=== PATIENT | female | born 1970 | race Caucasian/White ===

== ENCOUNTER → 2021-12-17 | Outpatient (CLI) | payer BC ==
[2021-12-17 13:52] VITALS: BP 120/77; PULSE 79; TEMP 98.1; BMI 36.8
--- NOTE | 2021-12-17 14:32 | P.HPBAR ---
Bariatric H&P - History & Physicial H&P Date: 12/17/21 History & Physicial: Visit/CC: new patient Patient initial contact: Initial weight: Initial weight in pounds: Height: 5 ft 5 in Initial BMI: Last weight: Current weight: 100.244 kg Current weight in pounds: 221.00 Current BMI: 36.8 [place] body weight (based on NIH guidelines): 56.699 kg Excess body weight loss: The patient is a 51 year-old F who presents for Bariatric Assessment. Family history of troubles with weight including brother and grandmother and cousins. Highest weight is present. She has rheumatoid arthritis and and osteoarthritis. She reports hips and back. She reports trouble with sleeping. She has plantar fasciitis. No stomach or esophageal cancer except grandmother. She had her colonoscopy in 2018 to 2019. She reports troubles with blood in stools. She has GERD. She reports blood. No gallbladder. She takes omeprazole. She has csections and breast reduction. No DVTs. No family history of blood clots. She reports pain along the right side prior to her gallbladder removal. Troubles with sleep Recommend colonoscopy She has PONV Increased pannus She has breast reduction. Past Medical History Past Medical History: Fibromyalgia, GERD/Reflux, Rheumatoid Arthritis (RA) Additional Past Medical History / Comment(s): STATES "RETAINS WATER" History of Any Multi-Drug Resistant Organisms: None Reported Past Surgical History: Breast Surgery, Section, Cholecystectomy Additional Past Surgical History / Comment(s): BREAST REDUCTION Past Anesthesia/Blood Transfusion Reactions: Motion Sickness, Postoperative Nausea & Vomiting (PONV) Past Psychological History: Anxiety Smoking Status: Current some day smoker Past Alcohol Use History: Occasional Past Drug Use History: None Reported - Past Family History Father Family Medical History: Cancer Additional Family Medical History / Comment(s): PROSTATE Surgical - Exam Vital Signs Temp Pulse BP 98.1 F 79 120/77 12/17/21 13:44 12/17/21 13:44 12/17/21 13:44 Bariatric Checklist Checklist: Plan: Checklist: EGD: 1. Hiatal hernia: 2. H. Pylori: HgbA1c: Vitamin D: Smoking: Former smoker Primary care physician referral: Dr. Mercado Psychiatry clearance: Cardiology clearance: Sleep study: Diet journal: VTE risk score: VTE risk level: Rehab needs at discharge:
[2021-12-17 17:30] LABS: INR 0.9 (<1.2); Partial Thromboplastin Time 22.4 sec (22.0-30.0); Prothrombin Time 10.1 sec (9.0-12.0)
[2021-12-17 22:42] LABS: HCT 42.8 % (37.2-46.3); HGB 13.9 g/dL (12.0-15.0); MCH 28.8 pg (27.0-32.0); MCHC 32.5 g/dL (32.0-37.0); MCV 88.8 fL (80.0-97.0); Mean Platelet Volume 10.4 fL (9.5-12.2); NRBC Per 100 WBC 0 /100 WBCS (0.0-0.0); Platelet Count 247 X 10*3/uL (140-440); RBC 4.82 X 10*6/uL (4.10-5.20); RDW 12.8 % (11.5-14.5); WBC 7.32 X 10*3/uL (4.50-10.00)
[2021-12-18 04:52] LABS: Chol/HDL Ratio 3.38 Ratio; LDL Cholesterol,Calculated 70.4 mg/dL (0.0-131.0); Prealbumin 34.4 mg/dL (18.0-42.0)
[2021-12-18 04:54] LABS: % Iron Saturation 15.94 (12.00-45.00); Total Iron Binding Capacity 332 ug/dL (228-460)
[2021-12-18 04:55] LABS: Ferritin 25.9 ng/mL (10.0-291.0); Iron 53 ug/dL (50-170); Magnesium 1.7 mg/dL (1.5-2.4); Phosphorus 3.5 mg/dL (2.4-5.1)
[2021-12-18 05:04] LABS: ALT 18 U/L (8-44); AST 31 U/L (13-35); African American GFR (CKD) 76.1 (60.0-200.0); Albumin 3.3 g/dL (3.8-4.9); Albumin/Globulin Ratio 1.32 (1.60-3.17); Alkaline Phosphatase 92 U/L (41-126); Blood Urea Nitrogen 12.6 mg/dL (9.0-27.0); Carbon Dioxide 21.5 mmol/L (20.0-27.5); Chloride 107 mmol/L (96-109); Globulin 2.5 g/dL (1.6-3.3); Glucose 87 mg/dL (70-110); Non-African American GFR(CKD) 65.6 (60.0-200.0); Potassium 4.6 mmol/L (3.5-5.5); Sodium 143 mmol/L (135-145); Total Bilirubin <0.15 mg/dL (0.30-1.20); Total Protein 5.8 g/dL (6.2-8.2)
[2021-12-18 12:09] LABS: Zinc, Serum 82 ug/dL (60-130)
[2021-12-19 09:16] LABS: Vit B1(Thiamine) 94 ug/L (38-122)
[2021-12-19 09:56] LABS: Vitamin A 72 ug/dL (38-106)
[2021-12-20 10:22] LABS: Anabasine Urine <2.0 ng/mL (<2.0)
[2021-12-22 17:41] LABS: Selenium 146 mcg/L (63-160)
== END | disposition home or self-care (01) ==
LOC: BARWHC3 13:30
PROVIDERS: ATTEND Surgery Plastic and Reconstructive Surgery
DX: E66.01 Morbid (severe) obesity due to excess calories (principal); E89.1 Postprocedural hypoinsulinemia; D50.8 Other iron deficiency anemias; K91.2 Postsurgical malabsorption, not elsewhere classified; E44.0 Moderate protein-calorie malnutrition; E44.1 Mild protein-calorie malnutrition; E45 Retarded development following protein-calorie malnutrition; E55.9 Vitamin D deficiency, unspecified; K74.1 Hepatic sclerosis; N19 Unspecified kidney failure; T56.894A Toxic effect of other metals, undetermined, initial encounter; K50.90 Crohn's disease, unspecified, without complications; Z71.51 Drug abuse counseling and surveillance of drug abuser
CPT/HCPCS: 80053; 80061; 80307; 80323; 82306; 82525; 82607; 82728; 82746; 83036; 83540; 83550; 83735; 83970; 84100; 84134; 84255; 84425; 84443; 84590; 84630; 85027; 85610; 85730; 93005; 99212

== ENCOUNTER 2022-01-19 07:28 | Day surgery (SDC) | payer BC ==
[2022-01-15 11:03] VITALS: BMI 35.8
--- NOTE | 2022-01-19 07:32 | P.GSHP ---
History of Present Illness H&P Date: 01/19/22 CHIEF COMPLAINT: GERD and colon screen HISTORY OF PRESENT ILLNESS: The patient is a 51-year-old female who presents with gastroesophageal reflux disease and need for colon screen. Upper and lower endoscopy were offered for further evaluation and management. PAST MEDICAL HISTORY: Please see list. PAST SURGICAL HISTORY: Please see list. MEDICATIONS: Please see list. ALLERGIES: Please see list. SOCIAL HISTORY: No illicit drug use FAMILY HISTORY: No reports of Crohn disease or ulcerative colitis. REVIEW OF ORGAN SYSTEMS: CONSTITUTIONAL: No reports of fevers or chills. GI: Denies any blood in stools or constipation. PHYSICAL EXAM: VITAL SIGNS: Stable GENERAL: Well-developed pleasant in no acute distress. HEENT: No scleral icterus. Extraocular movements grossly intact. Moist buccal mucosa. NECK: Supple without lymphadenopathy. CHEST: Unlabored respirations. Equal bilateral excursions. CARDIOVASCULAR: Regular rate and rhythm. Distal 2+ pulses. ABDOMEN: Soft, nondistended. MUSCULOSKELETAL: No clubbing, cyanosis, or edema. ASSESSMENT: 1. Gastroesophageal reflux disease 2. Colon screen. PLAN: 1. Recommend proceeding with an upper and lower endoscopy Past Medical History Past Medical History: Fibromyalgia, GERD/Reflux, Hyperlipidemia, Rheumatoid Arthritis (RA) Additional Past Medical History / Comment(s): STATES "RETAINS WATER." History of Any Multi-Drug Resistant Organisms: None Reported Past Surgical History: Breast Surgery, Section, Cholecystectomy, Uterine Ablation Additional Past Surgical History / Comment(s): BREAST REDUCTION. Past Anesthesia/Blood Transfusion Reactions: Motion Sickness, Postoperative Nausea & Vomiting (PONV) Past Psychological History: Anxiety Smoking Status: Current some day smoker Past Alcohol Use History: Occasional Additional Past Alcohol Use History / Comment(s): Smokes less than a pack week, X 30 yrs. Past Drug Use History: None Reported - Past Family History Father Family Medical History: Cancer Additional Family Medical History / Comment(s): PROSTATE CANCER. Mother Family Medical History: Cancer Additional Family Medical History / Comment(s): Lung cancer. Medications and Allergies Home Medications Medication Instructions Recorded Confirmed Type ALPRAZolam [Xanax] 0.25 mg PO DAILY PRN 03/26/16 01/15/22 History Omeprazole/Sodium Bicarbonate 1 each PO DAILY 03/26/16 01/15/22 History [Omeprazole-Bicarb 20-1,100 Cap] hydroCHLOROthiazide 25 mg PO DAILY 03/26/16 01/15/22 History Rosuvastatin [Crestor] 10 mg PO DAILY 12/17/21 01/15/22 History Allergies Allergy/AdvReac Type Severity Reaction Status Date / Time latex Allergy Itching Verified 01/15/22 11:04
[2022-01-19] MEDS ORDERED: LACTATED RINGERS 1,000 ML IV SCH (07:44)
[2022-01-19 07:53] VITALS: TEMP 96.9
[2022-01-19] MEDS ORDERED: PROPOFOL 10 MG/ML 20 ML VIAL IV ONE (08:43)
[2022-01-19] MEDS ORDERED: LIDOCAINE 2% INJ 20 MG/ML (2 ML VIAL) ONE (08:43)
[2022-01-19 09:54] VITALS: BP 130/71; PULSE 66; RESP 15
--- NOTE | 2022-01-19 10:14 | P.PCN ---
Date of Procedure: 01/19/22 Description of Procedure: PREOPERATIVE DIAGNOSIS: Gastroesophageal reflux disease. Morbid obesity. POSTOPERATIVE DIAGNOSIS: Gastroesophageal reflux disease. Morbid obesity. Gastritis. Duodenitis Gastric polyp Diaphragmatic hiatal hernia OPERATION: Esophagogastroduodenoscopy with biopsies along antrum and duodenum SURGEON: Federica Loera MD ANESTHESIA: MAC. INDICATIONS: The patient is a 51-year-old female who presents with reflux disease. Benefits and risks of the procedure were described. Informed consent was obtained. DESCRIPTION: The patient was brought into the endoscopy suite and laid in the left lateral decubitus position. An Olympus gastroscope was passed along the posterior oroph arynx down to the distal esophagus where the squamocolumnar junction was encountered at 40 cm from the incisors. The stomach was entered and no bile reflux was found. Additional findings are listed below. Biopsies with cold forceps were obtained of the antrum. The first through third portion of the duodenum was examined. Retroflexion of the scope confirmed Hill grade 3 lower esophageal valve. The squamocolumnar junction demonstrated LA grade B erosive esophagitis. The stomach was desufflated. The patient tolerated the procedure well. FINDINGS: Squamocolumnar junction 40 cm from the incisors. Diaphragmatic hiatus at 40 cm. Hiatal hernia, 4 cm Hill grade 4 lower esophageal valve. LA grade B erosive esophagitis. No active duodenitis. Chronic gastritis with recent bleed RECOMMENDATIONS: Upper endoscopy as needed.
--- NOTE | 2022-01-19 10:15 | P.PCN ---
Date of Procedure: 01/19/22 Description of Procedure: PREOPERATIVE DIAGNOSIS: Colonoscopy screening POSTOPERATIVE DIAGNOSIS: Personal history of colon polyps Family history malignant colon polyps Colonoscopy screening Tubular adenoma hepatic flexure Tubular adenoma transverse colon Sigmoid diverticulosis Internal hemorrhoids, grade 4 OPERATION: Colonoscopy to the ileocecal valve and appendiceal orifice, cecum Colonoscopy with cold forceps biopsy SURGEON: Federica Loera MD. ANESTHESIA: MAC. INDICATIONS: The patient is an 51-year-old female who presents family history of malignant colon polyps and personal history of colon polyps. Last colonoscopy 5 years. Benefits and risks were described and informed consent was obtained. DESCRIPTION OF PROCEDURE: The patient had undergone Sutab prep. The patient had been brought into the operating room and laid in the left lateral decubitus position. After adequate intravenous sedation, the rectum was examined with 2% lidocaine jelly. External hemorrhoids were encountered. The rectal tone was within normal limits. No lesions were palpated in the rectal vault. An Olympus colonoscope was advanced until the cecum, ileocecal valve and appendiceal orifice were clearly viewed. The prep was fair. Sigmoid diverticulosis was encountered. Colonic polyps were found and removed. No evidence of focal colitis was found. Retroflexion of the scope demonstrated grade 2 internal hemorrhoids without active bleeding or inflammation. The colon was desufflated. The patient had tolerated the procedure well. Withdrawal time was over 6 minutes. FINDINGS: Aronchick preparation quality scale 1 (1-5) Internal hemorrhoids, grade 3 with recent inflammation and bleeding External hemorrhoids, grade 4. No arteriovenous malformations. Sigmoid diverticulosis Removal of 2 polyps: - Snare polypectomy 20 cm from the anal verge, 5 mm tubulovillous adenoma polyp. - Snare polypectomy 39 cm from the anal verge, 8 mm flat villous adenoma polyp. - Snare polypectomy 50 cm from the anal verge, 12 mm flat villous adenoma polyp. - Cold forceps biopsy at 30 cm from the anal verge, 4 mm polyp. - Cold forceps biopsy at 40 cm from the anal verge, 5 mm polyp. - Cold forceps biopsy at 45 cm from the anal verge, 4 mm polyp. - Cold forceps biopsy at 55 cm from the anal verge, 3 mm polyp. - Cold forceps biopsy at 60 cm from the anal verge, 4 mm polyp. - Cold forceps biopsy at 65 cm from the anal verge, 3 mm polyp. - Cold forceps biopsy at 75 cm from the anal verge, 4 mm polyp. - Cold forceps biopsy at mid transverse colon, 5 mm polyp. - Cold forceps biopsy at proximal transverse colon, 4 mm polyp. No focal colitis. RECOMMENDATIONS: Given severity of tubular adenomas, recommend repeat colonoscopy 1 year. Plan - Discharge Summary Discharge Rx Participant: No New Discharge Prescriptions: Continue ALPRAZolam [Xanax] 0.25 mg PO DAILY PRN PRN Reason: Anxiety Omeprazole/Sodium Bicarbonate [Omeprazole-Bicarb 20-1,100 Cap] 1 each PO DAILY hydroCHLOROthiazide 25 mg PO DAILY Rosuvastatin [Crestor] 10 mg PO DAILY Discharge Medication List ALPRAZolam [Xanax] 0.25 mg PO DAILY PRN 03/26/16 [History] Omeprazole/Sodium Bicarbonate [Omeprazole-Bicarb 20-1,100 Cap] 1 each PO DAILY 03/26/16 [History] hydroCHLOROthiazide 25 mg PO DAILY 03/26/16 [History] Rosuvastatin [Crestor] 10 mg PO DAILY 12/17/21 [History] [facility]Ref[place] [facility] [place] [place] [facility] [place] Patient Instructions/Handouts: *Surgery [facility] - (Anesthesia) Endoscopy Discharge Instructions, Hiatal Hernia (ED), Gastritis (GEN), Colorectal Polyps (GEN), Duodenitis (DC) Activity/Diet/Wound Care/Special Instructions: Repeat colonoscopy in 3 years, 2024 Discharge Disposition: HOME SELF-CARE
== END 2022-01-19 10:56 | disposition home or self-care (01) ==
LOC: ORWHC2ENDO 07:28
PROVIDERS: ATTEND Surgery Plastic and Reconstructive Surgery
DX: Z12.11 Encounter for screening for malignant neoplasm of colon (principal); K63.5 Polyp of colon; K57.30 Diverticulosis of large intestine without perforation or abscess without bleeding; K64.3 Fourth degree hemorrhoids; K29.50 Unspecified chronic gastritis without bleeding; K29.80 Duodenitis without bleeding; K31.7 Polyp of stomach and duodenum; K44.9 Diaphragmatic hernia without obstruction or gangrene; K21.9 Gastro-esophageal reflux disease without esophagitis; E66.01 Morbid (severe) obesity due to excess calories; Z68.35 Body mass index [BMI] 35.0-35.9, adult; Z86.010 Personal history of colon polyps; Z83.71 Family history of colonic polyps; I10 Essential (primary) hypertension; E78.5 Hyperlipidemia, unspecified; M79.7 Fibromyalgia; M06.9 Rheumatoid arthritis, unspecified; F17.200 Nicotine dependence, unspecified, uncomplicated; Z91.040 Latex allergy status; Z79.899 Other long term (current) drug therapy; Z90.49 Acquired absence of other specified parts of digestive tract; Z80.42 Family history of malignant neoplasm of prostate; Z80.1 Family history of malignant neoplasm of trachea, bronchus and lung
CPT/HCPCS: 81025; 88305; 45380; 43239; J2704; J2001

== ENCOUNTER → 2022-02-18 | Outpatient (CLI) | payer BC ==
[2022-02-18 14:55] VITALS: BP 114/78; PULSE 82; TEMP 98; BMI 36.9
--- NOTE | 2022-02-18 15:08 | P.BASOAP ---
Subjective Progress Note Date: 02/18/22 She has a new EKG with Dr. Mercado. She has nicotine use. She has not had an ECHO or stress test before. Reviewed labs. Nicotine needs follow up. Went over EGD and colonoscopy could have a 5 year follow-up. She had occasional blood in stools improved prior to her procedures. Objective - Vital Signs Vital signs: Vital Signs Temp 98 F 02/18/22 14:54 Pulse 82 02/18/22 14:54 Resp BP 114/78 02/18/22 14:54 Pulse Ox FiO2 Intake & Output 02/17/22 02/18/22 02/18/22 18:59 06:59 18:59 Weight 100.698 kg Assessment/Plan Plan: Date: 02/18/22 Initial Weight: Initial BMI: Current Weight: 100.698 kg Current BMI: 36.9 Type of Surgery: Total Volume in Band: Previous Volume: Volume Removed: Volume Added: Band Size:
== END | disposition home or self-care (01) ==
LOC: BARWHC3 14:15
PROVIDERS: ATTEND Surgery Plastic and Reconstructive Surgery
DX: Z48.815 Encounter for surgical aftercare following surgery on the digestive system (principal)
CPT/HCPCS: 99211

== ENCOUNTER → 2022-03-02 | Outpatient (CLI) | payer BC ==
[2022-03-02 11:10] VITALS: BMI 37.5
== END | disposition home or self-care (01) ==
LOC: BARWHC3 08:47
PROVIDERS: ATTEND Surgery Plastic and Reconstructive Surgery
DX: E66.01 Morbid (severe) obesity due to excess calories (principal); Z71.3 Dietary counseling and surveillance
CPT/HCPCS: 97804

== ENCOUNTER → 2022-04-22 | Outpatient (CLI) | payer BC ==
--- NOTE | 2022-04-22 17:27 | P.BASOAP ---
Subjective Progress Note Date: 04/22/22 Consent for sleeve. FDD plan and PPP plan reviewed. Assessment/Plan Plan: Date: Initial Weight: Initial BMI: Current Weight: Current BMI: Type of Surgery: Total Volume in Band: Previous Volume: Volume Removed: Volume Added: Band Size:
[2022-04-22 17:35] VITALS: BP 137/89; PULSE 79; TEMP 98; BMI 38.4
== END | disposition home or self-care (01) ==
LOC: BARWHC3 16:25
PROVIDERS: ATTEND Surgery Plastic and Reconstructive Surgery
DX: Z48.815 Encounter for surgical aftercare following surgery on the digestive system (principal)
CPT/HCPCS: 99211

== ENCOUNTER 2022-05-04 06:32 | Inpatient (IN) | payer BC ==
[2022-05-04] MEDS ORDERED: SCOPOLAMINE 1 MG/72 HR PATCH TRANSDERM ONE (06:48)
[2022-05-04] MEDS ORDERED: ONDANSETRON 4 MG/2 ML VIAL IVP ONE (06:48)
[2022-05-04] MEDS ORDERED: DEXAMETHASONE SOD PHOSPHATE 4 MG/ML 1 ML VIAL IV ONE (06:48)
[2022-05-04] MEDS ORDERED: HYDROmorphone 0.5 MG/0.5 ML SYRINGE IVP PRN (06:48)
[2022-05-04] MEDS ORDERED: LIDOCAINE 1% (10MG/ML) FOR IV START INTRADERMA PRN (06:48)
[2022-05-04] MEDS ORDERED: ENOXAPARIN 40 MG/0.4 ML SYRINGE SQ PRN (07:00)
[2022-05-04] MEDS ORDERED: CHLORHEXIDINE GLUCONATE 15 ML CUP MUCOUS MEM PRN (07:00)
[2022-05-04] MEDS ORDERED: PANTOPRAZOLE 40 MG/10 ML VIAL IVP PRN (07:00)
--- NOTE | 2022-05-04 07:09 | P.GSHP ---
History of Present Illness H&P Date: 05/04/22 DATE OF SERVICE: 05/04/22 CHIEF COMPLAINT: Morbid obesity HISTORY OF PRESENT ILLNESS: Gayle Martínez is a 52-year-old female who comes with lifelong morbid obesity. She has rheumatoid arthritis and osteoarthritis. She reports hips and back pain. She reports trouble with sleeping. reports troubles with blood in stools. She has gastroesophageal reflux disease. She reports blood in her stool. Her gallbladder is removed. She takes omeprazole. No reports of DVTs. No family history of blood clots. She is looking into the sleeve gastrectomy. At height of 5 feet 5 inches, her ideal body weight is 149 pounds. Her highest weight is 221 pounds, body mass index 36.8. She comes in 221 pounds. Her body mass index is 36.8. She is 72 pounds overweight. PAST MEDICAL HISTORY: 1. Morbid obesity due to excess calories 2. Body mass index 36.8. 3. Hyperlipidemia 4. Hypertensive heart disease 5. Gastroesophageal reflux disease 6. Generalized anxiety disorder 7. Tobacco abuse disorder 8. Fibromyalgia 9. Rheumatoid Arthritis 10. Osteoarthritis of the hip 11. Osteoarthritis of the back 12. Plantar fasciitis PAST SURGICAL HISTORY: 1. Section 2. Cholecystectomy 3. Bilateral breast reduction HOME MEDICATIONS: Home Medications Medication Instructions Recorded Confirmed ALPRAZolam [Xanax] 0.25 mg PO DAILY PRN 03/26/16 02/18/22 Omeprazole/Sodium Bicarbonate 1 each PO DAILY 03/26/16 02/18/22 [Omeprazole-Bicarb 20-1,100 Cap] hydroCHLOROthiazide 25 mg PO DAILY 03/26/16 02/18/22 Rosuvastatin [Crestor] 10 mg PO DAILY 12/17/21 02/18/22 ALLERGIES: Allergies Allergy/AdvReac Type Severity Reaction Status Date / Time latex Allergy Itching Verified 01/19/22 07:46 SOCIAL HISTORY: Has tobacco use. FAMILY HISTORY: No family history of ulcerative colitis disease or Crohn's disease. Family history of morbid obesity. No lupus in the family. No stomach or esophageal cancer in her family history except in her grandmother. REVIEW OF ORGAN SYSTEMS: CONSTITUTIONAL: At height of 5 feet 5 inches, her ideal body weight is 149 pounds. Her highest weight is 221 pounds, body mass index 36.8. She comes in 221 pounds. Her body mass index is 36.8. She is 72 pounds overweight. HEENT: Denies any active troubles with vision or hearing. ENDOCRINE: Denies diabetes. Denies hypothyroidism. CARDIOVASCULAR: Denies past reports of palpitations or heart attacks or chest pain. Has hypertensive heart disease. Has hyperlipidemia. RESPIRATORY: Has daytime somnolence and snores. She reports trouble with sleeping. GASTROINTESTINAL: Denies any bright red blood per rectum. No diarrhea. No constipation. Has gastroesophageal reflux disease. Has gastroesophageal reflux disease. Has postop nausea or vomiting and motion sickness. She had her colonoscopy in 2018 to 2019. She reports troubles with blood in stools. GENITOURINARY: Denies bladder urgency. No recent blood in urine MUSCULOSKELETAL: Has lower back pain and joint pain. She has rheumatoid arthritis and osteoarthritis. She reports hips and back pain. She has plantar fasciitis. NEURO: Denies migraines. No seizure disorders. PSYCH: Denies depression. No suicidal ideation. Has generalized anxiety disorder. RHEUMATOLOGIC: No lupus. No rheumatoid arthritis. HEMATOLOGIC: Denies any abnormal bleeding or bruising. Denies past history of DVTs. SKIN: No rash. No skin cancer. PHYSICAL EXAM: VITAL SIGNS: Height 5 foot 5 inches, weight 221 pounds. BMI 36.8 GENERAL: Well-developed in no acute distress. HEENT: No scleral icterus. Extraocular movements grossly intact. Hears conversational speech. No nasal drainage. NECK: Supple without lymphadenopathy. CHEST: Nonlabored respirations with equal bilateral excursions. CARDIOVASCULAR: Regular rate and regular rhythm. Distal 2+ pulses. ABDOMEN: Obese, soft, nontender, nondistended. Increased pannus MUSCULOSKELETAL: No clubbing, cyanosis. NEURO: No focal or lateralizing signs. Cranial nerves 2 through 12 grossly within normal limits. PSYCH: Appropriate affect. Alert and oriented to person, place and time. SKIN: Good skin turgor. Well perfused. ASSESSMENT: 1. Morbid obesity due to excess calories 2. Body mass index 36.8. 3. Hyperlipidemia 4. Hypertensive heart disease 5. Gastroesophageal reflux disease 6. Generalized anxiety disorder 7. Tobacco abuse disorder 8. Fibromyalgia 9. Rheumatoid Arthritis 10. Osteoarthritis of the hip 11. Osteoarthritis of the back 12. Plantar fasciitis PLAN: 1. Bariatric options between a sleeve, band and a Juvenal-en-Y gastric bypass were reviewed in detail. The patient elected for a sleeve gastrectomy. Robotic assisted approach described. 2. The [place] [facility] Data was also reviewed with benefits and risks as described. 3. An 8 page second-generation bariatric consent form was reviewed in detail including potential of bleeding, infection, leaks, adequate weight loss, nutritional deficiencies which the patient demonstrated understanding of the risks. 4. A 2 week high-protein low caloric 800 kcal diet described to address hepatom egaly. 5. Preoperative labs including complete metabolic panel and CBC with type and screen recommended. 6. DVT prophylaxis per [place] [facility]. 7. Antibiotic prophylaxis. 8. Inpatient hospitalization anticipated for more than 2 nights. 9. All questions and concerns were addressed with the patient. 10. The patient is at elevated risk for perioperative complications with sleep apnea and hypertensive heart disease. 11. Overall, patient has expressed understanding of bariatric care including postoperative diet and commitment of lifestyle. Patient should benefit from surgical intervention for correction of morbid obesity. 12. She is elevated risk due to pre-existing comorbid conditions from prior tobacco abuse disorder. Past Medical History Past Medical History: Fibromyalgia, GERD/Reflux, Hyperlipidemia, Hypertension, Osteoarthritis (OA), Rheumatoid Arthritis (RA) Additional Past Medical History / Comment(s): STATES "RETAINS WATER.". back pain osteoarthritis History of Any Multi-Drug Resistant Organisms: None Reported Past Surgical History: Breast Surgery, Section, Cholecystectomy, Uterine Ablation Additional Past Surgical History / Comment(s): BREAST REDUCTION. COLONOSCOPY Past Anesthesia/Blood Transfusion Reactions: Motion Sickness, Postoperative Nausea & Vomiting (PONV) Smoking Status: Former smoker - Past Family History Father Family Medical History: Cancer Additional Family Medical History / Comment(s): PROSTATE CANCER. Mother Family Medical History: Cancer Additional Family Medical History / Comment(s): Lung cancer. Medications and Allergies Home Medications Medication Instructions Recorded Confirmed Type ALPRAZolam [Xanax] 0.25 mg PO DAILY PRN 03/26/16 05/04/22 History Omeprazole/Sodium Bicarbonate 1 each PO DAILY 03/26/16 05/04/22 History [Omeprazole-Bicarb 20-1,100 Cap] hydroCHLOROthiazide 25 mg PO DAILY 03/26/16 05/04/22 History Rosuvastatin [Crestor] 10 mg PO DAILY 12/17/21 05/04/22 History Allergies Allergy/AdvReac Type Severity Reaction Status Date / Time latex Allergy Itching Verified 05/04/22 06:57
[2022-05-04] MEDS ORDERED: GABAPENTIN 300 MG CAP PO STA (07:10)
[2022-05-04] MEDS ORDERED: SCOPOLAMINE 1 MG/72 HR PATCH TRANSDERM STA (07:10)
[2022-05-04] MEDS ORDERED: ACETAMINOPHEN TAB 500 MG TAB PO STA (07:10)
[2022-05-04] MEDS: LACTATED RINGERS 1,000 ML IV SCH (07:30)
[2022-05-04 07:52] LABS: Basophils % (A) 1 %; Eosinophils # (A) 0.2 k/uL (0-0.7); Eosinophils % (A) 3 %; HGB 14.6 gm/dL (11.4-16.0); Lymphocytes # (A) 1.6 k/uL (1.0-4.8); Lymphocytes % (A) 29 %; MCH 30.2 pg (25.0-35.0); MCHC 35.6 g/dL (31.0-37.0); MCV 84.8 fL (80.0-100.0); Mean Platelet Volume 7.9; Monocytes # (A) 0.3 k/uL (0-1.0); Monocytes % (A) 6 %; Neutrophils # (A) 3.2 k/uL (1.3-7.7); Neutrophils % (A) 59 %; Platelet Count 221 k/uL (150-450); RBC 4.83 m/uL (3.80-5.40); RDW 13.2 % (11.5-15.5); WBC 5.5 k/uL (3.8-10.6)
[2022-05-04 08:00] LABS: ALT 61 U/L (4-34); AST 48 U/L (14-36); African American GFR (CKD) >90 (>60 ml/min/1.73 sqM); Albumin 4.5 g/dL (3.5-5.0); Alkaline Phosphatase 74 U/L (38-126); Anion Gap 10 mmol/L; Blood Urea Nitrogen 18 mg/dL (7-17); Calcium 9.1 mg/dL (8.4-10.2); Carbon Dioxide 29 mmol/L (22-30); Chloride 102 mmol/L (98-107); Glucose 96 mg/dL (74-99); Non-African American GFR(CKD) >90 (>60 ml/min/1.73 sqM); Potassium 3.1 mmol/L (3.5-5.1); Sodium 141 mmol/L (137-145); Total Bilirubin 0.6 mg/dL (0.2-1.3); Total Protein 7.1 g/dL (6.3-8.2)
[2022-05-04] MEDS ORDERED: diphenhydrAMINE 50 MG/ML 1 ML VIAL ONE (08:00)
[2022-05-04] MEDS ORDERED: PROPOFOL 10 MG/ML 20 ML VIAL IV ONE (08:00)
[2022-05-04] MEDS ORDERED: GLYCOPYRROLATE 0.2 MG/ML 2 ML VIAL ONE (08:00)
[2022-05-04] MEDS ORDERED: fentaNYL (PF) 50 MCG/ML 2 ML AMP ONE (08:00)
[2022-05-04] MEDS ORDERED: NEOSTIGMINE 1 MG/ML 10 ML VIAL ONE (08:00)
[2022-05-04] MEDS ORDERED: KETAMINE 10 MG/ML 20 ML VIAL ONE (08:00)
[2022-05-04] MEDS ORDERED: MIDAZOLAM 2 MG/2 ML VIAL ONE (08:00)
[2022-05-04] MEDS ORDERED: ROCURONIUM 10 MG/ML (5 ML VIAL) IV ONE (08:00)
[2022-05-04] MEDS ORDERED: SUCCINYLCHOLINE CHLORIDE 200 MG/10 ML VIAL IV ONE (08:00)
[2022-05-04] MEDS ORDERED: LIDOCAINE 2% INJ 20 MG/ML (2 ML VIAL) ONE (08:00)
[2022-05-04] MEDS ORDERED: KETOROLAC 15 MG/ML 1 ML VIAL ONE (08:00)
[2022-05-04] MEDS ORDERED: PHENYLEPHRINE-0.9% NACL SYG 1,000 MCG/10 ML SYRINGE ONE (08:00)
[2022-05-04] MEDS ORDERED: BUPIVACAIN-EPI 0.25%-1:200,000 30 ML VIAL SQ ONE (08:21)
[2022-05-04] MEDS ORDERED: LACTATED RINGERS 1,000 ML IV ONE (09:04)
[2022-05-04] MEDS ORDERED: NALOXONE 0.4 MG/ML 1 ML VIAL IV PRN (10:16)
[2022-05-04] MEDS ORDERED: SODIUM CHLORIDE 0.9% 2,000 ML IV ONE (10:19)
[2022-05-04] MEDS ORDERED: fentaNYL PCA 500 MCG/50 ML BAG IV PRN (10:20)
--- NOTE | 2022-05-04 10:27 | P.OP ---
Date of Procedure: 05/04/22 Description of Procedure: SURGEON: KYLIE GARCIA MD PREOPERATIVE DIAGNOSES: 1. Morbid obesity due to excess calories 2. Body mass index 36.8. 3. Hyperlipidemia 4. Hypertensive heart disease 5. Gastroesophageal reflux disease 6. Generalized anxiety disorder 7. Tobacco abuse disorder 8. Fibromyalgia 9. Rheumatoid Arthritis 10. Osteoarthritis of the hip 11. Osteoarthritis of the back 12. Plantar fasciitis 13. Diaphragmatic hiatal hernia POSTOPERATIVE DIAGNOSES: 1. Morbid obesity due to excess calories 2. Body mass index 36.8. 3. Hyperlipidemia 4. Hypertensive heart disease 5. Gastroesophageal reflux disease 6. Generalized anxiety disorder 7. Tobacco abuse disorder 8. Fibromyalgia 9. Rheumatoid Arthritis 10. Osteoarthritis of the hip 11. Osteoarthritis of the back 12. Plantar fasciitis 13. Diaphragmatic hiatal hernia OPERATION: 1. Robotic assisted daVinci Xi laparoscopic sleeve gastrectomy with 40-Venezuelan bougie, multiport. 2. Intraoperative esophagogastroduodenoscopy. ANESTHESIA: Gen. local anesthetic ESTIMATED BLOOD LOSS: 5 mL SPECIMENS REMOVED: Sleeve gastrectomy COMPLICATIONS: None. FINDINGS: 1. Negative intraoperative esophagogastrojejunoscopy leak test. 2. No moderate hepatomegaly 3. Total of 7 staplers used including 1 - 60 mm black robot basil, 1 - 60 mm green, 5 - 60 mm robot loads used to create the gastric sleeve. 4. Sleeve gastrectomy, 31 x 5 cm 5. Small hiatus hernia INDICATIONS: Gayle Martínez is a 52-year-old female who comes with lifelong morbid obesity. She completed bariatric risk assessment. She is looking into the sleeve gastrectomy. At height of 5 feet 5 inches, her ideal body weight is 149 pounds. Her highest weight is 221 pounds, body mass index 36.8. She is 72 pounds overweight. She reports 13 pound weight loss from her preoperative weight diet. All surgical options for morbid obesity had been described using the [place] bariatric surgery collaborative comorbidity resolution including complication risk score. A second-generation bariatric consent form was described in detail including the possibility of protein malnutrition, leaks, gastric stricture, venous thrombosis, gastroesophageal reflux disease, need for further surgery for which she demonstrated understanding. Benefits and risks of the procedure were described at length. Informed consent was obtained. DESCRIPTION: The patient was brought into the operating room theater. Preoperatively she had received Lovenox subcutaneously for DVT prophylaxis. Additionally she had Peridex oral solution as an oral decontaminant. After general induction, the abdomen was prepped and draped in standard sterile fashion. An Ioban draping was placed along the abdomen. A robotic da Ellen Xi system was prepped and primed. At 15 cm from the xiphoid, proposed port sites were marked with indelible marker along the anterior axillary line bilaterally, mid axillary line bilaterally with each ports were marked 10 to 15 cm from each other. The robotic stapler port was marked for the right midclavicular line. A 5 mm 0 degrees laparoscopic trocar entry was performed along the left upper quadrant. The abdomen was insufflated to 15 mmHg pressure was tolerated well. Diagnostic laparoscopy demonstrated no injury to bowel, viscera, or mesentery. Small hiatus hernia identified easily reducible. The liver edge was blunted consistent with mild hepatomegaly despite 2 week low-carb high-protein diet. A 8 mm port was placed along the left upper abdominal wall after exchanging the 5 mm port. A separate 8 mm port was placed along the left lateral abdominal wall. Please note that the ports were placed at least 20 cm away from the target anatomy. Care was taken to check each robotic arms were safely away from collision with the bed or the patient. At the epigastrium, a medium sized Avery liver retractor was placed under direct visualization with the Iron Computer Patternmaker placed under the right shoulder of the patient. Next, 12-mm robot stapler port was placed along the right upper quadrant. The camera 8-mm port was maintained along the epigastrium. The patient was repositioned in reverse Trendelenburg position at 21-degrees after lowering the bed. The robot was docked along the left side of the patient. Using a grasper for arm 4, a vessel sealer for arm 3, including grasper for arm 1, the robotic system was docked and primed as described. Instruments were interchanged by the stores assistant for stapler loads. The camera was placed at 30- degrees down. I had sat at the console. The pylorus was identified and 6 cm proximally along the greater curvature of the stomach, the short gastrics were mobilized upwards to the angle of His using a vessel sealer. Hemostasis was excellent during this portion of the procedure. Next, the upper pole of the stomach was adherent to the left uzma, which was gently dissected free using atraumatic grasper. I went to the head of the bed and placed 40-Venezuelan blunt bougie into the stomach. The bougie was readjusted by the nurse live study manager. Robotic stapler black load 60 mm 1 followed by green 60 mm x 1 and blue 60 mm 5 loads were used to create the sleeve. Initial firing was across the antrum of the stomach towards the angle of His. The staple line was linear without corkscrewing. The space from the angularis incisura of the sleeve was approximately 4 cm. I then went to the head of the bed to perform the intraoperative esophagogastroduodenoscopy leak test. The bougie was withdrawn. The upper pole of the stomach was bathed using normal saline solution. The scope was withdrawn with careful inspection along the staple line for which no leaks were found along the entire length. Additionally,the sleeve was completely hemostatic without any encroachment along the angularis incisura. Its topology was a soft "J". No stricture was encountered upon placement of the scope. The GI tract was desufflated. The patient tolerated this portion of the procedure well. The scope was completely withdrawn. The robot was undocked. I then rescrubbed into case, whereby the irrigation fluid was aspirated from the abdominal cavity. Tisseel fibrin sealant was placed along the entire staple length. Once dried the Avery liver retractor was removed. Attention was now brought to removal of the specimen. The distal end of the sleeve gastrectomy specimen was brought out through the 12 mm port at the left upper quadrant. The specimen was gently removed en total. No contamination had occurred during this process. All instruments and pneumoperitoneum including irrigation fluid was removed from the abdominal cavity. The 12 mm port site was closed using 0-Vicryl and Sonido Rhoades and irrigated with diluted hydrogen peroxide. The final incisions were closed using subcuticular interrupted suture of 4-0 Monocryl. Exofin was applied to the skin once the skin had been cleansed. OptiFoam dressing was placed along the stomach extraction site. The sleeve specimen was measured and checked also for leaks which none were found. At the end of the procedure, needle, sponge, and instrument count was verified correct by the rn medical surgical. The patient was taken to the postanesthesia care unit in stable condition. She had tolerated the procedure well. Intraoperative films and findings were reviewed with the patient's family.
[2022-05-04] MEDS: ACETAMINOPHEN IV (For NPO) 1,000 MG in EMPTY BAG 1 BAG IVPB SCH ×3 (12:39→23:47)
[2022-05-04] MEDS: HYOSCYAMINE ORAL DROPS 1.875 MG/15 ML BOTTLE PO SCH ×3 (12:40→23:47)
[2022-05-04] MEDS: ONDANSETRON 4 MG/2 ML VIAL IVP SCH ×3 (12:40→23:47)
[2022-05-04] MEDS: DEXAMETHASONE SOD PHOSPHATE 4 MG/ML 1 ML VIAL IVP SCH ×3 (12:40→23:47)
[2022-05-04] MEDS: SIMETHICONE 40 MG/0.6 ML DROPS 2,000 MG/30 ML BOTTLE PO SCH ×3 (12:41→23:48)
[2022-05-04] MEDS ORDERED: DEXAMETHASONE SOD PHOSPHATE 10 MG/ML 1 ML VIAL IVP ONE (16:00)
[2022-05-04] MEDS: ALBUTEROL NEBULIZED 2.5 MG/3 ML INHALATION SCH ×4 (16:48→20:56)
[2022-05-04] MEDS: 0.9% NACL WITH KCL 20 MEQ/L 1,000 ML IV SCH ×2 (16:54→17:37)
[2022-05-05] MEDS: 0.9% NACL WITH KCL 20 MEQ/L 1,000 ML IV SCH ×2 (00:15→07:44)
[2022-05-05] MEDS: ACETAMINOPHEN IV (For NPO) 1,000 MG in EMPTY BAG 1 BAG IVPB SCH ×2 (06:48→11:44)
[2022-05-05] MEDS: SIMETHICONE 40 MG/0.6 ML DROPS 2,000 MG/30 ML BOTTLE PO SCH ×2 (06:49→11:45)
[2022-05-05] MEDS: HYOSCYAMINE ORAL DROPS 1.875 MG/15 ML BOTTLE PO SCH ×2 (06:49→11:45)
[2022-05-05] MEDS: ONDANSETRON 4 MG/2 ML VIAL IVP SCH ×2 (06:49→11:44)
[2022-05-05] MEDS: DEXAMETHASONE SOD PHOSPHATE 4 MG/ML 1 ML VIAL IVP SCH ×2 (06:49→11:44)
[2022-05-05] MEDS: LACTATED RINGERS 1,000 ML IV SCH (07:51)
[2022-05-05] MEDS ORDERED: 0.9% NACL WITH KCL 20 MEQ/L 1,000 ML IV SCH (08:00)
[2022-05-05 08:08] VITALS: RESP 18
[2022-05-05] MEDS: ALBUTEROL NEBULIZED 2.5 MG/3 ML INHALATION SCH ×3 (08:26→15:26)
[2022-05-05] MEDS ORDERED: hydroCHLOROthiazide 25 MG TAB PO SCH (09:00)
[2022-05-05] MEDS ORDERED: ENOXAPARIN 40 MG/0.4 ML SYRINGE SQ SCH (09:00)
[2022-05-05] MEDS ORDERED: PANTOPRAZOLE 40 MG/10 ML VIAL IV SCH (09:00)
[2022-05-05 09:08] LABS: Basophils # (A) 0 X 10*3/uL (0.00-0.10); Basophils % (A) 0 %; Eosinophils # (A) 0 X 10*3/uL (0.04-0.35); Eosinophils % (A) 0 %; HCT 37.1 % (37.2-46.3); HGB 12.2 g/dL (12.0-15.0); Immature Grans, Automated 0.3 %; Lymphocytes # (A) 0.77 X 10*3/uL (0.90-5.00); Lymphocytes % (A) 8.6 %; MCHC 32.9 g/dL (32.0-37.0); MCV 88.1 fL (80.0-97.0); Monocytes # (A) 0.12 X 10*3/uL (0.20-1.00); Monocytes % (A) 1.3 %; NRBC Per 100 WBC 0 /100 WBCS (0.0-0.0); Neutrophils # (A) 8.04 X 10*3/uL (1.80-7.70); Neutrophils % (A) 89.8 %; Platelet Count 208 X 10*3/uL (140-440); RBC 4.21 X 10*6/uL (4.10-5.20); RDW 13.3 % (11.5-14.5); WBC 8.96 X 10*3/uL (4.50-10.00)
[2022-05-05 09:15] LABS: Magnesium 1.8 mg/dL (1.5-2.4)
[2022-05-05 09:18] LABS: African American GFR (CKD) 122.3 (60.0-200.0); Anion Gap 8.6 mmol/L (10.00-18.00); Blood Urea Nitrogen 10.2 mg/dL (9.0-27.0); Calcium 8.5 mg/dL (8.7-10.3); Carbon Dioxide 27.4 mmol/L (20.0-27.5); Non-African American GFR(CKD) 105.5 (60.0-200.0); Phosphorus 1.7 mg/dL (2.4-5.1); Potassium 3.6 mmol/L (3.5-5.5)
[2022-05-05 10:34] VITALS: BMI 34.7
--- NOTE | 2022-05-05 12:05 | FL ---
EXAMINATION TYPE: FL UGI DATE OF EXAM: 05/05/2022 COMPARISON: None HISTORY: Post gastric sleeve surgery TECHNIQUE: A single contrast UGI study is performed. FINDINGS: Fluoroscopy time: 20 seconds Images: 140 Contrast passes from the distal esophagus through the gastric sleeve with mild hesitancy. No extravas ation of contrast is evident. Very minimal free air is noted below the right diaphragm during this examination. Overhead radiographs were obtained which are otherwise unremarkable. IMPRESSIONS: 1. Normal post gastric sleeve without obstruction or significant hesitancy. No extravasation.
[2022-05-05] MEDS ORDERED: Phosphorus Replacement Protoco 1 EACH MISC MISCELLANE PRN (13:16)
--- NOTE | 2022-05-05 13:57 | P.DS ---
Providers Date of admission: 05/04/22 06:32 Expected date of discharge: 05/05/22 Attending physician: Federica Loera Primary care physician: Gabriel Jess [facility] Course: Discharge diagnosis 1. Morbid obesity due to excess calories 2. Body mass index 36.8. 3. Hyperlipidemia 4. Hypertensive heart disease 5. Gastroesophageal reflux disease 6. Generalized anxiety disorder 7. Tobacco abuse disorder 8. Fibromyalgia 9. Rheumatoid Arthritis 10. Osteoarthritis of the hip 11. Osteoarthritis of the back 12. Plantar fasciitis 13. Diaphragmatic hiatal hernia 14. Hypokalemia resolved 15. Hypophosphatemia Hospital course Gayle Martínez is a 52-year-old female who comes with lifelong morbid obesity. She is status post Robotic-assisted daVinci laparoscopic sleeve gastrectomy. Patient tolerated surgery well. Her upper GI shows no evidence of leak or obstruction. She is tolerating diet. Her pain is controlled. She's afebrile. She is having flatus. She is urinating without difficulty. She is up and ambulating. She is stable for discharge. Physician Engineering Technical Specialist note has been reviewed by physician. Signing provider agrees with the documented findings, assessment, and plan of care. Patient Condition at Discharge: Stable Plan - Discharge Summary Discharge Rx Participant: Yes New Discharge Prescriptions: New bisacodyL [Dulcolax] 5 mg PO DAILY PRN #10 tab PRN Reason: Constipation Ondansetron Odt [Zofran Odt] 4 mg PO Q8HR PRN #9 tab PRN Reason: Nausea Simethicone 40 mg/0.6 ml Drops [Mylicon Drops] 40 mg PO PCHS PRN #30 ml PRN Reason: Gas Omeprazole [PriLOSEC] 40 mg PO DAILY #30 cap Acetaminophen Tab [Tylenol] 1,000 mg PO Q6HR PRN #30 tablet PRN Reason: Pain Continue ALPRAZolam [Xanax] 0.25 mg PO DAILY PRN PRN Reason: Anxiety Discontinued Omeprazole/Sodium Bicarbonate [Omeprazole-Bicarb 20-1,100 Cap] 1 each PO DAILY hydroCHLOROthiazide 25 mg PO DAILY Rosuvastatin [Crestor] 10 mg PO DAILY Discharge Medication List ALPRAZolam [Xanax] 0.25 mg PO DAILY PRN 03/26/16 [History] Acetaminophen Tab [Tylenol] 1,000 mg PO Q6HR PRN #30 tablet 05/05/22 [Rx] Omeprazole [PriLOSEC] 40 mg PO DAILY #30 cap 05/05/22 [Rx] Ondansetron Odt [Zofran Odt] 4 mg PO Q8HR PRN #9 tab 05/05/22 [Rx] Simethicone 40 mg/0.6 ml Drops [Mylicon Drops] 40 mg PO PCHS PRN #30 ml 05/05/22 [Rx] bisacodyL [Dulcolax] 5 mg PO DAILY PRN #10 tab 05/05/22 [Rx] Follow up Appointment(s)/Referral(s): [place], [place] [NON-STAFF] - 05/08/22 Patient Instructions/Handouts: Nutrition after Bariatric Surgery (DC), Nutrition after Bariatric Surgery (GEN), Laparoscopic Sleeve Gastrectomy (DC), Laparoscopic Sleeve Gastrectomy (GEN) Activity/Diet/Wound Care/Special Instructions: Liquid diet only for 2 weeks No lifting over 4 pounds in 4 weeks May Shower. No soaking in bath tubs 2 weeks Please notify your surgeon if you develop nausea and vomiting including new onset of abdominal pain. Continue to use incentive spirometry to prevent pneumonias. Please continue to ambulate at home to prevent blood clots in legs. Follow-up at the bariatric center. May shower. Dressings to be discontinued by surgeon in the office. Drink 64 oz of fluid daily. Start protein shakes on . Notify bariatric center for temp over 101.0, increased pain, drainage from incisions. No straws or carbonated beverages. Liquid diet only. Sugar content should be less than 6 g to avoid dumping syndrome. Take MOM for constipation. CRUSH, OPEN, OR CUT TABLETS LARGER THAN A SIZE OF A TIC TAC Hold on taking hydrochlorothiazide and Crestor until seen by surgeon in office Discharge Disposition: HOME SELF-CARE
[2022-05-05 14:26] VITALS: BP 99/60; TEMP 98.1
[2022-05-05] MEDS: POTASSIUM PHOSPHATE 10 MMOL in SODIUM CHLORIDE 0.9% 250 ML IV SCH ×2 (14:34→15:51)
[2022-05-05 15:36] VITALS: PULSE 72
== END 2022-05-05 17:00 | disposition home or self-care (01) | DRG 621 ==
LOC: 2ORMAIN 06:32 → 4SSUR 09:45
PROVIDERS: ADMIT Surgery Plastic and Reconstructive Surgery; ATTEND Surgery Plastic and Reconstructive Surgery
PROC: 8E0W4CZ Robotic Assisted Procedure of Trunk Region, Percutaneous Endoscopic Approach (ICD-10-PCS; principal; 2022-05-04 08:00)
PROC: 0DB64Z3 Excision of Stomach, Percutaneous Endoscopic Approach, Vertical (ICD-10-PCS; principal; 2022-05-04 08:00)
DX: E66.01 Morbid (severe) obesity due to excess calories (principal); E78.5 Hyperlipidemia, unspecified; E83.39 Other disorders of phosphorus metabolism; E87.6 Hypokalemia; F41.1 Generalized anxiety disorder; I11.9 Hypertensive heart disease without heart failure; K21.9 Gastro-esophageal reflux disease without esophagitis; K44.9 Diaphragmatic hernia without obstruction or gangrene; M06.9 Rheumatoid arthritis, unspecified; M16.10 Unilateral primary osteoarthritis, unspecified hip; M72.2 Plantar fascial fibromatosis; M79.7 Fibromyalgia; Z68.36 Body mass index [BMI] 36.0-36.9, adult; F17.210 Nicotine dependence, cigarettes, uncomplicated; Z79.899 Other long term (current) drug therapy
CPT/HCPCS: 74240; 80051; 80053; 82310; 82565; 83735; 84100; 84520; 85025; 86850; 86900; 86901; 88307; 94640; 94760

== ENCOUNTER → 2022-05-08 | Outpatient (CLI) | payer BC ==
[2022-05-08 09:54] VITALS: BP 143/93; PULSE 62; RESP 16; TEMP 98.3; BMI 36.2
--- NOTE | 2022-05-08 12:13 | P.BASOAP ---
Subjective Progress Note Date: 05/08/22 Clinically doing well. Tolerating diet. Pain controlled. No nausea or vomiting. No infection. She started protein shakes. Although one week. Dressing discontinued. Wound care instructions reviewed. Ambulation to prevent DVTs described. Objective - Vital Signs Vital signs: Vital Signs Temp 98.3 F 05/08/22 09:47 Pulse 62 05/08/22 09:47 Resp 16 05/08/22 09:47 BP 143/93 05/08/22 09:47 Pulse Ox FiO2 Intake & Output 05/07/22 05/08/22 05/08/22 18:59 06:59 18:59 Weight 98.883 kg Assessment/Plan Plan: Date: 05/08/22 Initial Weight: 104.78 kg Initial BMI: 38.4 Current Weight: 98.883 kg Current BMI: 36.2 Type of Surgery: Vertical Sleeve Gastrectomy Total Volume in Band: Previous Volume: Volume Removed: Volume Added: Band Size:
== END ==
LOC: BARWHC3 08:32
PROVIDERS: ATTEND Surgery Plastic and Reconstructive Surgery
DX: Z09 Encounter for follow-up examination after completed treatment for conditions other than malignant neoplasm (principal); Z98.84 Bariatric surgery status; Z91.040 Latex allergy status; Z87.891 Personal history of nicotine dependence
CPT/HCPCS: 99211

== ENCOUNTER → 2022-05-13 | Outpatient (CLI) | payer BC ==
[2022-05-13 15:21] VITALS: BP 124/86; PULSE 74; TEMP 98; BMI 34.4
--- NOTE | 2022-05-13 15:34 | P.BASOAP ---
Subjective Progress Note Date: 05/13/22 She has blood in her stools. She ws disimpacted. She had rectal pain. She did an enema. Recommend lactulose. She has firm stool. Lactulose prescribed. Recommend increase fluids until 80 to 100 oz. Objective - Vital Signs Vital signs: Vital Signs Temp 98 F 05/13/22 15:14 Pulse 74 05/13/22 15:14 Resp BP 124/86 05/13/22 15:14 Pulse Ox FiO2 Intake & Output 05/12/22 05/13/22 05/13/22 18:59 06:59 18:59 Weight 93.894 kg Assessment/Plan Plan: Date: 05/13/22 Initial Weight: Initial BMI: Current Weight: 93.894 kg Current BMI: 34.4 Type of Surgery: Total Volume in Band: Previous Volume: Volume Removed: Volume Added: Band Size:
== END ==
LOC: BARWHC3 14:49
PROVIDERS: ATTEND Surgery Plastic and Reconstructive Surgery
DX: Z71.3 Dietary counseling and surveillance (principal); E66.01 Morbid (severe) obesity due to excess calories; Z91.040 Latex allergy status; Z87.891 Personal history of nicotine dependence; Z68.34 Body mass index [BMI] 34.0-34.9, adult
CPT/HCPCS: 97802; 99211

== ENCOUNTER → 2022-08-26 | Outpatient (CLI) | payer BC ==
[2022-08-26 16:08] VITALS: BP 144/88; PULSE 61; TEMP 97.7; BMI 30.9
--- NOTE | 2022-08-26 16:24 | P.BASOAP ---
Subjective Progress Note Date: 08/26/22 SHe has chronic constiaption. She has bleeding with blood. She is on chronic laxatives. SHe has moderate blood. SHe has diverticulosis. Get labs. Objective - Vital Signs Vital signs: Vital Signs Temp 97.7 F 08/26/22 16:03 Pulse 61 08/26/22 16:03 Resp BP 144/88 08/26/22 16:03 Pulse Ox FiO2 Intake & Output 08/25/22 08/26/22 08/26/22 18:59 06:59 18:59 Weight 84.368 kg Assessment/Plan Plan: Date: 08/26/22 Initial Weight: 104.78 kg Initial BMI: 38.4 Current Weight: 84.368 kg Current BMI: 30.9 Type of Surgery: Total Volume in Band: Previous Volume: Volume Removed: Volume Added: Band Size:
== END ==
LOC: BARWHC3 15:01
PROVIDERS: ATTEND Surgery Plastic and Reconstructive Surgery
DX: E66.01 Morbid (severe) obesity due to excess calories (principal); Z68.30 Body mass index [BMI] 30.0-30.9, adult; Z91.040 Latex allergy status; Z87.891 Personal history of nicotine dependence
CPT/HCPCS: 99211